=== PATIENT | male | born 1960 | race Caucasian/White ===

== ENCOUNTER 2018-10-02 09:41 | Emergency (ER) | payer SELFPAY ==
[~2018-10-02] VITALS: Ht 175.3 cm; Wt 79.4 kg
--- NOTE | 2018-10-02 09:41 | NUR ---
Patient BIBA BLS, transferred to bed 8. RN evaluating patient at bedside.
[2018-10-02 09:57] VITALS: BP 135/77
--- NOTE | 2018-10-02 10:00 | NUR ---
BIBA C/O ETOH. PER EMS, PT WAS AT [employer] SEEN DRINKING A 4 LOKOS AND WALKING WITH UNSTEADY GAIT. UNKNOWN OTHER ALCOHOL CONSUMPTION. PT HAS SPEECH SLURRED. AROUSABLE TO SHAKING. CAN STATE HIS NAME. PT CONTINUES TO FALL ASLEEP WHILE QUESTIONS ARE BEING ASKED. PMH- UNKNOWN
[2018-10-02] MEDS ORDERED: NACL 0.9% 1,000 ML IV ONE ×2 (10:30)
--- NOTE | 2018-10-02 10:35 | NUR ---
PT REFUSED IV INSERTION. EXPLAINED HIM THAT WILL NEED IV FOR FLUID. STATES DOES NOT NEED HIS IV. WILL TRY AGAIN LATER.
--- NOTE | 2018-10-02 10:56 | NUR ---
PT REFUSED CT
[2018-10-02] MEDS ORDERED: LORazepam 2 MG/ML VIAL IM STA (10:57)
[2018-10-02 11:12] LABS: BASOPHILS % (AUTO) 0.4 % (0.0-2.0); EOSINOPHILS # (AUTO) 0.1 K/uL (0-0.4); EOSINOPHILS % (AUTO) 1.7 % (0.0-4.0); HEMATOCRIT 40.7 % (36-52); LYMPHOCYTES # (AUTO) 1.6 K/uL (2.0-11.5); LYMPHOCYTES % (AUTO) 24.3 % (20.5-51.1); MEAN CORPUSCULAR HEMOGLOBIN 33 pg (27-31); MEAN CORPUSCULAR HGB CONC 34 g/dL (33-37); MONOCYTES # (AUTO) 0.9 K/uL (0.8-1.0); MONOCYTES % (AUTO) 13.4 % (1.7-9.3); NEUTROPHILS % (AUTO) 60.2 % (42.2-75.2); PLATELET COUNT (AUTO) 202 K/uL (140-450); RED BLOOD CELL COUNT(AUTO) 4.19 MIL/uL (4.20-6.10); RED CELL DISTRIBUTION WIDTH 12.5 % (11.6-13.7); WHITE BLOOD COUNT (AUTO) 6.6 K/uL (4.8-10.8)
[2018-10-02 11:21] LABS: ANION GAP 16.3 (8-16); CHLORIDE 94 mmol/L (98-107); CREATININE 0.9 mg/dL (0.7-1.3); GFR ARICAN-AMERICAN 111 mL/min (>90); GLUCOSE 147 mg/dL (74-106); POTASSIUM 3.3 mmol/L (3.5-5.1); SODIUM SERUM 131 mmol/L (136-145); UREA NITROGEN, BLOOD 6 mg/dL (7-18)
[2018-10-02 11:28] LABS: ACETAMINOPHEN < 0.5 ug/ml (10-30); ALBUMIN 3.5 g/dL (3.4-5.0); ASPARTATE AMINOTRANSFERASE 59 U/L (15-37); LIPASE 173 U/L (73-393); MAGNESIUM 1.4 mg/dL (1.8-2.4); SALICYLATE < 2.8 mg/dL (2.8-20.0); TOTAL BILIRUBIN 0.4 mg/dL (0.0-1.0)
[2018-10-02] MEDS ORDERED: MAG SULF 2000 MG/WATER PREMIX 50 ML IV ONE (11:35)
[2018-10-02] MEDS ORDERED: POTASSIUM CHLORIDE 10 MEQ TABER PO ONE (11:35)
--- NOTE | 2018-10-02 11:35 | NUR ---
PT TO CT VIA [facility]
[2018-10-02 12:07] LABS: BARBITURATE, URINE NEG. ng/ml (NEG <=200); BENZODIAZEPINE, URINE NEG. ng/mL (NEG <=200); CANNABINOID, URINE NEG. ng/mL (NEG <=50); COCAINE, URINE NEG. ng/mL (NEG <=300); OPIATE, URINE NEG. ng/mL (NEG <=2000); PHENCYCLIDINE SCREEN,URINE NEG. ng/mL (NEG <=25)
--- NOTE | 2018-10-02 13:00 | NUR ---
PT SLEEPING COMFORTABLY IN HIS BED. NO S/SX OF DISTRESS NOTED.
[2018-10-02 13:22] VITALS: BP 140/72
--- NOTE | 2018-10-02 14:05 | NUR ---
[facility]OT [facility] PHONE NUMBER [phone]. WILL CONTACT ONCE PT HAS THE DISCHARGE ORDER.
--- NOTE | 2018-10-02 15:57 | NUR ---
PT ELOPED FROM THE FACILITY, DID NOT WAIT FOR THE PAPER TO BE SIGNED. STATES OKAY AND REFUSED TO SIGN THE PAPER. TOOK HIS IV OUT BY HIMSELF, STATES HE IS OKAY.
--- NOTE | 2018-10-02 15:59 | NUR ---
PATIENT ELOPED FROM FACILITY. DISCHARGE INSTRUCTIONS NOT GIVEN TO PATIENT. DR. THOMAS NOTIFIED.
--- NOTE | 2018-10-02 15:59 | NUR ---
PT AAOX3-4. ABLE TO WALK. STATES IS FINE. ASKED TO WAIT FOR DOCTOR AND DISCHARGE PAPER, REFUSED TO BE SEEN , DID NOT SIGN THE PAPER AND WALKED OUT FO THE DOOR. DR. THOMAS MADE AWARE.
== END 2018-10-02 15:58 | disposition left against medical advice (07) ==
LOC: MED 09:41
DX: F10.129 Alcohol abuse with intoxication, unspecified (principal); E83.42 Hypomagnesemia; E87.6 Hypokalemia; E87.1 Hypo-osmolality and hyponatremia
CPT/HCPCS: 36415; 70450; 71045; 80053; 80305; 83690; 83735; 84484; 85025; 93005; 96372; 96374; 99284; G0480; G0482; J2060; J3475; Q0092; J7030